=== PATIENT | male | born 1945 | race Caucasian/White ===

== ENCOUNTER 2016-07-21 12:09 | Emergency (ER) | payer MEDICARE ==
[2016-07-21 13:30] LABS: HEMOGLOBIN 14.4 gm/dl (14.0-17.5); RED BLOOD COUNT 5.1 M/UL (4.20-5.50); WHITE BLOOD COUNT 10.7 K/UL (4.5-11.0)
[2016-07-21 13:53] LABS: BUN/CREATININE RATIO 19 (0-10)
== END 2016-07-21 16:29 | disposition home or self-care (01) ==
LOC: ER1 12:09
PROVIDERS: Physician Assistant Medical
DX: K40.90 Unilateral inguinal hernia, without obstruction or gangrene, not specified as recurrent (principal); R31.9 Hematuria, unspecified; I10 Essential (primary) hypertension; F17.210 Nicotine dependence, cigarettes, uncomplicated; Z95.5 Presence of coronary angioplasty implant and graft; Z88.0 Allergy status to penicillin; Z79.82 Long term (current) use of aspirin; Z79.02 Long term (current) use of antithrombotics/antiplatelets; Z79.01 Long term (current) use of anticoagulants
CPT/HCPCS: 36415; 80053; 81001; 82150; 83690; 85025; 85610; 85730; 99284; J7050; Q9962

== ENCOUNTER 2021-05-30 13:16 | Emergency (ER) | payer MEDICARE ==
[~2021-05-30 13:16] MED LIST: ADULT LOW DOSE81 MG PO; AMLODIPINE BESY10 MG PO; CEFUROXIME250 MG PO; IPRAT-ALBUT 0.5-3 ML NEB; LOPRESSOR 25 MG25 MG PO; NICOTINE PATCH1 EAC5 TD; PLAVIX75 MG PO; PREDNISONE10 M1 PO; PRINIVIL20 MG PO; PROTONIX 40 MG40 M1 PO; SYMBICORT 16010.2 GM INH; VENTOLIN HFA 66.7 GM INH; ZOCOR 40 MG TAB40 MG PO
[2021-05-30 14:56] LABS: HEMOGLOBIN 14.6 gm/dl (14.0-17.5); RED BLOOD COUNT 5.1 M/UL (4.20-5.50); WHITE BLOOD COUNT 15.4 K/UL (4.5-11.0)
[2021-05-30 15:23] LABS: BUN/CREATININE RATIO 17 (0-10)
[2021-05-30] MEDS ORDERED: OMNICEF 300 MG300 MG PO (17:31)
== END 2021-05-30 19:20 | disposition home or self-care (01) ==
LOC: ER1 13:16
PROVIDERS: Emergency Medicine
DX: N39.0 Urinary tract infection, site not specified (principal); R33.9 Retention of urine, unspecified; E87.6 Hypokalemia; I25.10 Atherosclerotic heart disease of native coronary artery without angina pectoris; J44.9 Chronic obstructive pulmonary disease, unspecified; F17.200 Nicotine dependence, unspecified, uncomplicated
CPT/HCPCS: 80053; 81001; 85025; 87040; 87077; 87086; 87186; 96374; 99283; J0696